=== PATIENT | female | born 1985 | race African-American/Black ===

== ENCOUNTER 2022-07-08 14:02 | Outpatient (CLI) | payer OTHER | END 2022-07-08 14:03 | disposition home or self-care (01) | LOC: CSHMAMMO 14:02 | PROVIDERS: ATTEND Family Medicine | DX: Z12.31 Encounter for screening mammogram for malignant neoplasm of breast (principal) | CPT/HCPCS: 77063; 77067 ==

== ENCOUNTER 2022-07-17 08:04 | Outpatient (CLI) | payer OTHER ==
[2022-07-17] MEDS ORDERED: Iopamidol 300 61% 100 ML VIAL FS ONE (14:17)
== END 2022-07-17 08:05 | disposition home or self-care (01) ==
LOC: CSHCT 08:04
PROVIDERS: ATTEND Family Medicine
DX: J98.59 Other diseases of mediastinum, not elsewhere classified (principal)
CPT/HCPCS: 71260; Q9967